=== PATIENT | female | born 1990 | race Caucasian/White ===

== ENCOUNTER 2016-04-19 06:13 | Day surgery (SDC) | payer SELFPAY ==
[2016-04-15 18:05] VITALS: BMI 21.6
[2016-04-19] MEDS ORDERED: ONDANSETRON 4 MG/2 ML VIAL ONE (07:12)
[2016-04-19] MEDS ORDERED: ePHEDrine SULFATE 50 MG/1 ML AMPULE ONE (07:12)
[2016-04-19] MEDS ORDERED: ceFAZolin SODIUM 1 GM VIAL ONE (07:12)
[2016-04-19] MEDS ORDERED: DEXAMETHASONE SOD PHOSPHATE 4 MG/1 ML VIAL ONE (07:12)
[2016-04-19] MEDS ORDERED: PHENYLEPHRINE HCL 10 MG/1 ML SINGLE DOSE VIAL ONE (07:12)
[2016-04-19] MEDS ORDERED: SUCCINYLCHOLINE CHLORIDE 200 MG/10 ML VIAL ONE (07:13)
[2016-04-19] MEDS ORDERED: MIDAZOLAM HCL 2 MG/2 ML SINGLE DOSE VIAL ONE (07:13)
[2016-04-19] MEDS ORDERED: ROCURONIUM BROMIDE 50 MG/5 ML VIAL ONE (07:13)
[2016-04-19] MEDS ORDERED: PROPOFOL 20 ML ONE ×2 (07:13)
[2016-04-19] MEDS ORDERED: LIDOCAINE HCL/PF 2% SDV 5ML VIAL ONE (07:15)
[2016-04-19] MEDS ORDERED: EPINEPHrine/PF 1 MG/1 ML (1:1,000) AMPULE ONE (07:22)
[2016-04-19] MEDS ORDERED: LIDOCAINE HCL 1%, 10 MG/ML (20ML VIAL) ONE (07:22)
[2016-04-19] MEDS ORDERED: ACETAMINOPHEN INJECTION 100 ML IVPB ONE (07:35)
[2016-04-19] MEDS ORDERED: BACITRACIN 30 GM TUBE TOPICAL OINTMENT ONE (08:01)
[2016-04-19] MEDS ORDERED: DESFLURANE GAS 240 ML BOTTLE IH ONE (09:17)
[2016-04-19] MEDS ORDERED: GLYCOPYRROLATE 0.2 MG/1 ML VIAL ONE (09:45)
[2016-04-19] MEDS ORDERED: KETOROLAC TROMETHAMINE 30 MG/1 ML VIAL ONE (09:45)
[2016-04-19] MEDS ORDERED: NEOSTIGMINE METHYLSULFATE 0.5 MG/ML - 10 ML MDV ONE (09:46)
[2016-04-19] MEDS ORDERED: HYDROmorphone HCL/PF 1 MG/ML VIAL (FOR PYXIS CHARGING ONLY) ONE (11:13)
[2016-04-19] MEDS ORDERED: oxyCODONE HCL 5 MG TABLET PO PRN ×2 (12:08→12:57)
[2016-04-19] MEDS ORDERED: LACTATED RINGERS SOLUTION 1,000 ML IV SCH (12:15)
[2016-04-19] MEDS ORDERED: ONDANSETRON 4 MG/2 ML VIAL IVPB PRN (12:57)
[2016-04-19 13:24] VITALS: TEMP 98.1
[2016-04-19 13:44] VITALS: BP 116/74; PULSE 74
--- NOTE | 2016-04-20 07:20 | OP ---
DATE OF OPERATION: 04/19/2016 PROCEDURE: Liposuction to posterior trunk with fat grafting to buttocks. ATTENDING SURGEON: Miladys Medina MD PREOPERATIVE DIAGNOSIS: Cosmetic. POSTOPERATIVE DIAGNOSIS: Cosmetic. DESCRIPTION OF PROCEDURE: The patient was marked in the holding area. Counseled on all risks and alternatives to the procedure. It was explained to the procedure that the limitation would be the amount available of fat that she has for grafting. She understands this. The patient is awake for the markings and is aware of the incision sites. She is brought to the operating room. Sequential compression stockings were applied. A gram of Ancef was given preoperatively. She is intubated in a supine position and is then transferred into the prone position. All positioning aids were used. The transfer and positioning are performed by surgical and anesthesia teams. Prone view setup is used for the airway, and the axillary rolls are placed. Pillow is placed below the shins. An egg crate is placed below the knees. Foam arm cradles were used. The patient is then prepped and draped in standard sterile fashion. A time-out is called. The patient, procedure, and side are verified. Infiltration is first performed after stab wound incisions are made in several locations for access for liposuction. SAFE liposuction technique is used. The area is infiltrated with wetting solution. The wetting solution is 1 L of normal saline 1 amp and 1:100,000 epinephrine and 20 mL of 1% lidocaine plain. Total infiltration for this case is 2500 mL. The last 500 mL of infiltration contain no lidocaine. After the infiltration is injected in the bilateral flanks and lower back, a full 20 minutes is awaited for hemostatic effect of the infiltration. After this, pretunneling is performed with a 4-mm exploded tip cannula after which liposuction is performed using a combination of 3- and 4-mm cannulas and a Micro[employer] power assisted system. The total liposuction aspirate for the case is 2 L of which the pure harvested fat is 145 mL. The fat is harvested using a [employer] spinning fat harvesting and washing system. It is transferred into 10-mL luer lock syringes. Using Quinones injection cannulas and Quinones technique, the fat is injected in microaliquots into the deficient areas of the lateral buttock and superior central buttock. The total amount injected is 66 mL on the left and 79 mL on the right. The endpoint for liposuction was the inability to yield fat without blood and a smooth, even contoured Liposuction and injection holes are closed with a series of interrupted 5-0 nylon suture. The wounds are dressed with 0.5-inch Steri-Strips. Gauze padding is used to compress on the liposucked areas. A compression garment with cutouts for the buttocks is applied. The patient is awoken from anesthesia and transferred to recovery without complication. MILADYS MEDINA M.D. [id number]
== END 2016-04-19 13:46 | disposition home or self-care (01) ==
LOC: FASU 06:13
PROVIDERS: ATTEND Plastic Surgery
PROC: 0J093ZZ Alteration of Buttock Subcutaneous Tissue and Fascia, Percutaneous Approach (ICD-10-PCS; principal; 2016-04-19 08:58)
DX: Z41.1 Encounter for cosmetic surgery (principal)
CPT/HCPCS: 84703; 94760